=== PATIENT | female | born 1970 | race Hispanic/Latino ===

== ENCOUNTER 2019-04-24 06:38 | Emergency (ER) | payer BC ==
[~2019-04-24] VITALS: Ht 162.6 cm; Wt 106.6 kg
--- OUTSIDE RECORDS SUMMARY | 2019-04-24 06:41 | XMS REPORT ---
Author [facility] Address Unknown Phone Unavailable Care Team Providers Care High Worker Name Role Phone Unavailable Unavailable Payers Payer Name Policy Type Policy Number Effective Date Expiration Date Problems This patient has no known problems. Allergies, Adverse Reactions, Alerts Allergy Name Allergy Type Status Severity Reaction(s) Onset Date Inactive Date Treating Clinician Comments morphine DA Active U 2010-02-02 00:00:00 [place] DA Active U 2008-12-20 00:00:00 Medications This patient has no known medications.
--- NOTE | 2019-04-24 07:01 | NUR ---
DR. MEJÍA REVIEWED EKG, GIVEN SYMPTOMS AND TOLD TO SNAP FOR CARDIACS
[2019-04-24 07:26] LABS: BILIRUBIN,URINE NEGATIVE (NEGATIVE); CLARITY,URINE SL CLOUDY (CLEAR); COLOR,URINE YELLOW (YELLOW); KETONES,URINE NEGATIVE (NEGATIVE); LEUKOCYTE ESTERASE ,URINE NEGATIVE (NEGATIVE); NITRITE,URINE NEGATIVE (NEGATIVE); PROTEIN,URINE DIPSTICK TRACE (NEGATIVE); URINE UROBILINOGEN 0.2 mg/dL (0.2 - 1)
[2019-04-24 07:42] LABS: BASOPHILS # (AUTO) 0.1 (0.0-0.1); EOSINOPHILS # (AUTO) 0.3 (0.0-0.4); EOSINOPHILS % 3.8 % (0.0-6.0); HEMATOCRIT 43.2 % (34.2-44.1); HEMOGLOBIN 14.8 g/dL (12.0-16.0); LYMPHOCYTES # (AUTO) 1.7 (1.0-3.2); LYMPHOCYTES % 24.5 % (18.0-39.1); MEAN CORPUSCULAR HGB CONC 34.3 g/dL (31-35); MEAN CORPUSCULAR VOLUME 87.4 fL (81-99); MONOCYTES # (AUTO) 0.4 (0.2-0.8); NEUTROPHILS # (AUTO) 4.4 (2.1-6.9); NEUTROPHILS % 64.3 % (38.7-80.0); PLATELET COUNT 228 x10e3/uL (140-360); RED BLOOD COUNT 4.94 x10e6/uL (3.6-5.1); RED CELL DISTRIBUTION WIDTH 12.3 % (11.7-14.4)
[2019-04-24 07:50] LABS: WBC,URINE (MAN) 21-50 /HPF (0-5)
[2019-04-24 07:51] LABS: BACTERIA,URINE MODERATE /HPF; EPITHELIAL CELLS,URINE MODERATE /LPF
[2019-04-24] MEDS: ASPIRIN 81 MG CHEW TAB PO ONE ×2 (07:57)
[2019-04-24] MEDS ORDERED: METFORMIN HCL500 MG PO (07:59)
[2019-04-24] MEDS ORDERED: LISINOPRIL10 MG PO (07:59)
[2019-04-24] MEDS ORDERED: VENLAFAXINE HCL75 MG PO (08:00)
[2019-04-24] MEDS ORDERED: PRAVASTATIN SOD10 MG PO (08:00)
[2019-04-24 08:05] LABS: ALANINE AMINOTRANSFERASE 42 IU/L (0-55); ALBUMIN/GLOBULIN RATIO 1.1 (0.8-2.0); ALKALINE PHOSPHATASE 84 IU/L (40-150); BLOOD UREA NITROGEN 10 mg/dL (7-26); BUN/CREATININE RATIO 13 (6-25); CALCIUM 9.4 mg/dL (8.4-10.2); CARBON DIOXIDE 28 mmol/L (22-29); CHLORIDE 98 mmol/L (98-107); CREATINE KINASE 28 IU/L (29-168); CREATININE, SERUM 0.79 mg/dL (0.57-1.11); EST GLOMERULAR FILTRATION RATE > 60 ML/MIN (60-); GLUCOSE 273 mg/dL (74-118); SODIUM 135 mmol/L (136-145)
[2019-04-24 08:06] LABS: INR 0.83; PROTHROMBIN TIME 11.9 seconds (11.9-14.5)
[2019-04-24 08:13] LABS: PARTIAL THROMBOPLASTIN TIME 27.2 seconds (23.8-35.5)
--- NOTE | 2019-04-24 08:35 | Diagnostic Imaging Report ---
EXAMINATION: CHEST SINGLE (PORTABLE) INDICATION: Chest pain COMPARISON: Chest radiograph of 04/24/2019 FINDINGS: TUBES and LINES: EKG leads overlie the chest. LUNGS: Portable technique and underpenetrated study. Within these limitations, the lungs are moderately inflated. No focal consolidation or pulmonary edema. PLEURA: No pleural effusion or pneumothorax. HEART AND MEDIASTINUM: The cardiomediastinal silhouette is unchanged in size and contour. BONES AND SOFT TISSUES: No acute fracture or dislocation. UPPER ABDOMEN: No free air under the diaphragm. IMPRESSION: No focal pneumonia or pulmonary edema. Signed by: Jeremias Ag MD on 04/24/2019 8:32 AM
[2019-04-24 09:24] VITALS: BP 139/57
[2019-04-24] MEDS ORDERED: MACROBID 100 M100 MG PO (09:25)
== END 2019-04-24 09:54 | disposition home or self-care (01) ==
LOC: ER 06:38
DX: R07.89 Other chest pain (principal)
CPT/HCPCS: 36415; 71045; 80053; 81001; 82550; 82553; 84484; 85025; 85610; 85730; 93005; 99284

== ENCOUNTER 2020-04-04 00:40 | Emergency (ER) | payer BC, OTHER ==
[~2020-04-04] VITALS: Ht 162.6 cm; Wt 101.2 kg
[~2020-04-04 00:40] MED LIST: LISINOPRIL10 MG PO; MACROBID 100 M100 MG PO; METFORMIN HCL500 MG PO; PRAVASTATIN SOD10 MG PO; VENLAFAXINE HCL75 MG PO
[2020-04-04] MEDS ORDERED: ONDANSETRON HCL INJ 2MG/ML 2ML 2 MG/ML VIAL IV STA (00:57)
[2020-04-04] MEDS ORDERED: SODIUM CHLORIDE 0.9% 1000ML 1,000 ML IV STA (00:57)
[2020-04-04] MEDS ORDERED: ACETAMINOPHEN 325 MG TAB PO ONE (01:00)
--- NOTE | 2020-04-04 02:03 | Diagnostic Imaging Report ---
Examination: Single AP view of the chest. COMPARISON: Portable chest 04/24/2019 INDICATION: Shortness of breath and dizziness IMPRESSION: 1. Lines and Tubes: None 2. Slightly hypoinflated lungs. There are patchy bibasilar opacities, left greater than right, which may reflect atelectasis. Pneumonia could be considered, in the appropriate clinical setting. Mild bilateral lower lobe bronchial wall thickening may reflect bronchitis. 3. Cardiomediastinal silhouette is normal. Pulmonary vasculature is normal. 4. No acute bony abnormalities. Signed by: Dr. Les Escobar M.D. on 04/04/2020 2:00 AM
--- NOTE | 2020-04-04 02:08 | Diagnostic Imaging Report ---
EXAMINATION: Head CT without contrast. HISTORY:Dizziness. COMPARISON:None. TECHNIQUE: Multidetector axial images were obtained from the foramen magnum to the vertex without contrast. The images were reconstructed using brain and bone algorithms. Thin section brain images were reformatted into coronal and sagittal planes. Dose modulation, iterative reconstruction, and/or weight based adjustment of the mA/kV was utilized to reduce the radiation dose to as low as reasonably achievable. Intravenous contrast: None IMAGE QUALITY: Acceptable. FINDINGS: Skull/scalp: No lytic or blastic. lesions. No surgical changes. Parenchyma: No abnormal density. No acute hemorrhage, mass or acute major vascular territorial infarct. Arteries: No density suggestive of thrombosis. Dural sinuses: No abnormal density suggestive of thrombosis. Ventricles: No hydrocephalus or displacement. Extra-axial spaces: No abnormal density. Brain volume: Normal for age. Craniocervical junction: No mass, Chiari malformation, or basilar invagination. Sella: No mass. Paranasal/mastoid sinuses: Imaged portions unremarkable. IMPRESSION: No intracranial abnormality. Signed by: Dr. Heather Rogers M.D. on 04/04/2020 2:05 AM
[2020-04-04] MEDS ORDERED: ACETAMINOPHEN 325 MG TAB ONE (02:30)
[2020-04-04] MEDS ORDERED: ONDANSETRON HCL INJ 2MG/ML 2ML 2 MG/ML VIAL ONE (02:30)
[2020-04-04] MEDS ORDERED: SODIUM CHLORIDE 0.9% 1000ML 1,000 ML ONE (02:31)
--- NOTE | 2020-04-04 03:16 | Emergency Department Note ---
History of Present Illnes History of Present Illness Chief Complaint: General Medicine Complaints History of Present Illness This is a 49 year old female c cc fever cough headache . Historian: Patient Arrival Mode: [place] Onset (how long ago): day(s) (3) Location: headache cough Quality: dull Radiation: Denies non-radiation, Denies back, Denies neck, Denies extremity, Denies abdomen, Denies periumbilical, Denies flank, Denies proximal, Denies distal, Denies other Severity: moderate Onset quality: gradual Duration (how long): day(s) (2) Progression: waxing and waning Chronicity: new Context: Denies recent illness, Denies recent surgery, Denies recent immobilization, Denies recent travel, Denies trauma/injury, Denies new medications, Denies hx of DVT/PE, Denies non-compliance w/ medications, Denies other Relieving factors: none Exacerbating factors: none Associated symptoms: Reports denies other symptoms, Reports other Treatments prior to arrival: none Past Medical/Family History Physician Review I have reviewed the patient's past medical and family history. Any updates have been documented here. Past Medical History Recent Fever: Yes Clinical Suspicion of Infectio: No New/Unexplained Change in Ment: No Past Medical History: Hypertension, Diabetes Other Medical History: HIGH CHOLESTEROL Past Surgical History: Tubal Ligation Other Surgery: FX TO LEFT TOES Social History Smoking Cessation: Never Smoker Alcohol Use: None Any Illegal Drug Use: No TB Exposure/Symptoms: No Physically hurt or threatened: No Other Last Tetanus: UTD Any Pre-Existing Lines (PICC,: No Is patient up to date on immun: Yes Last Flu: 10/30 Last Pneumovax: NA Review of Systems Review of Systems Constitutional: Reports as per HPI, Reports fever EENTM: Reports no symptoms Cardiovascular: Reports no symptoms Respiratory: Reports as per HPI Gastrointestinal: Reports no symptoms Genitourinary: Reports no symptoms Musculoskeletal: Reports no symptoms Integumentary: Reports no symptoms Neurological: Reports as per HPI Psychological: Reports no symptoms Endocrine: Reports no symptoms Hematological/Lymphatic: Reports no symptoms Physical Exam Related Data Triage Vital Signs Vital Signs Date Time Temp Pulse Resp B/P (MAP) Pulse Ox O2 Delivery O2 Flow Rate FiO2 04/04/20 00:40 100.7 100 18 121/73 100 Vital signs reviewed: Yes Physical Exam CONSTITUTIONAL Constitutional: Present well-developed, Present well-nourished HENT HENT: Present normocephalic, Present atraumatic, Present oropharynx clear/moist, Present nose normal HENT L/R: Present left ext ear normal, Present right ext ear normal EYES Eyes: Reports PERRL, Reports conjunctivae normal NECK Neck: Present ROM normal PULMONARY Pulmonary: Present effort normal, Present breath sounds normal CARDIOVASCULAR Cardiovascular: Present regular rhythm, Present heart sounds normal, Present capillary refill normal, Present normal rate GASTROINTESTINAL Abdominal: Present soft, Present nontender, Present bowel sounds normal GENITOURINARY Genitourinary: Present exam deferred SKIN Skin: Present warm, Present dry MUSCULOSKELETAL Musculoskeletal: Present ROM normal NEUROLOGICAL Neurological: Present alert, Present oriented x 3, Present no gross motor or sensory deficits PSYCHOLOGICAL Psychological: Present mood/affect normal, Present judgement normal Results Laboratory Lab results reviewed: Yes Assessment & Plan Medical Decision Making MDM headache pneumonia Reassessment Reassessment time: 03:14 Reassessment pneumonia covid Assessment & Plan Final Impression: (1) Headache (2) Dizziness (3) Fever (4) Bronchitis Depart Disposition: HOME, SELF-CARE Last Vital Signs Date Time Temp Pulse Resp B/P (MAP) Pulse Ox O2 Delivery O2 Flow Rate FiO2 04/04/20 00:40 100.7 100 18 121/73 100 Home Meds Active Scripts Nitrofurantoin Monohyd/M-Cryst (MACROBID 100 MG CAPSULE) 100 Mg Capsule, 100 MG PO BID for 10 Days, #20 Prov:FRANK WEST, DO 04/24/19 Reported Medications Pravastatin Sodium (PRAVASTATIN SODIUM) 10 Mg Tablet, 1 TAB PO DAILY 04/24/19 Venlafaxine Hcl (VENLAFAXINE HCL) 75 Mg Tab, 75 MG PO DAILY, #30 TAB 04/24/19 Lisinopril (LISINOPRIL) 10 Mg Tablet, 10 MG PO DAILY, #30 TAB 04/24/19 Metformin Hcl (METFORMIN HCL) 500 Mg Tablet, 1000 MG PO BID, #60 TAB 04/24/19 Medications in the ED Acetaminophen 650 mg ONCE ONCE PO Last administered on 04/04/20at 02:30; Admin Dose 650 MG; Start 04/04/20 at 01:00; Stop 04/04/20 at 01:01; Status UNV Sodium Chloride 1,000 ml @ 0 mls/hr Q0M STAT IV Last administered on 04/04/20at 02:30; Admin Dose 1,000 MLS/HR; Start 04/04/20 at 00:57; Stop 04/04/20 at 01:01; Status DC Ondansetron HCl 4 mg NOW STAT IV Last administered on 04/04/20at 02:30; Admin Dose 4 MG; Start 04/04/20 at 00:57; Stop 04/04/20 at 00:58; Status UNV Sodium Chloride 1,000 ml @ [facility] ONCE .ROUTE ; Start 04/04/20 at 02:31; Stop 04/04/20 at 02:27; Status DC AMADO BURNS MD Apr 04, 2020 03:16
[2020-04-04 03:35] VITALS: BP 120/74
== END 2020-04-04 03:33 | disposition home or self-care (01) ==
LOC: FSED 00:40
DX: R50.9 Fever, unspecified (principal); R05 Cough; U07.1 COVID-19; R51 Headache; R42 Dizziness and giddiness; J40 Bronchitis, not specified as acute or chronic; I10 Essential (primary) hypertension; E11.9 Type 2 diabetes mellitus without complications
CPT/HCPCS: 70450; 71045; 80053; 81003; 81025; 85025; 87635; 99284; J2405; J7030